=== PATIENT | male | born 1980 | race Caucasian/White ===

== ENCOUNTER 2023-06-28 23:45 | Emergency (ER) | payer BC ==
[~2023-06-28] VITALS: Ht 167.6 cm; Wt 96.2 kg
[2023-06-28 23:53] VITALS: BP 134/94; PULSE 98; RESP 16; TEMP 97.5; O2SAT 100
== END 2023-06-29 00:11 ==
LOC: MED 23:45
DX: Z02.89 Encounter for other administrative examinations (principal); Z79.899 Other long term (current) drug therapy; V49.88XA Car occupant (driver) (passenger) injured in other specified transport accidents, initial encounter; Y93.89 Activity, other specified; Y92.89 Other specified places as the place of occurrence of the external cause; Y99.8 Other external cause status
CPT/HCPCS: 99283